=== PATIENT | male | born 1960 | race Caucasian/White ===

== ENCOUNTER 2016-05-20 17:41 | Observation (INO) | payer BC ==
--- NOTE | 2016-05-20 18:01 | EDPHY ---
HPI/HX/ROS/PE/MDM Narrative: CHIEF COMPLAINT: Right sided hand and face numbness. HISTORY OF PRESENT ILLNESS: The patient is a 56-year-old male with history of TIA and hypertension who presents to the ED with multiple neurological deficits. The patient started seeing black dots in his right eye around 9am. This lasted for about 30 minutes and then resolved. Around 11am the patient received a call from a client and felt very confused and is unable to recall the conversation. At 12pm he developed right sided numbness in his hand and face. He also developed a headache at that time, which he took 2 extra strength Tylenol. He states his symptoms have resolved. The patient is on Coumadin for a family blood clotting disorder that is unknown. He states he has not been taking the Coumadin as regularly lately. Of note, the patient recently went for a run and after felt as though he had a clot in his lateral right knee. The patient additionally notes that he recently had jaw surgery. He states he is having lip numbness that is more noticeable than usual. No fever, chills, chest pain, shortness of breath, palpitations, vomiting, diarrhea, urinary complaints, lightheadedness. According to the patient's , the first time the patient experienced a TIA was in 1999. He had left sided facial numbness and droop. Symptoms resolved on their own. He was discharged and then his symptoms worsened. Patient became more weak and collapsed. He had CT imaging done, and family believes clots were visualized. REVIEW OF SYSTEMS: Aside from elements discussed in the HPI, a comprehensive 10-point review of systems was reviewed and is negative. PAST MEDICAL HISTORY: TIA, Blood clotting disorder, Hypertension SOCIAL HISTORY: . The patient's father and son both have the same blood clotting disease. VITAL SIGNS: Reviewed by me GENERAL: Well-developed, appears uncomfortable, holding his head. HEENT: Atraumatic. Eyes: Nonsustained nystagmus when look to the left. Mouth : moist mucous membranes. No erythema or lesions. Neck: supple with no adenopathy. LUNGS: Clear to auscultation bilaterally, no wheezes, rhonchi or rales. CARDIAC: Regular rate and rhythm, no rubs, murmurs or gallops. ABDOMEN: Soft, nontender, nondistended, bowel sounds normal. BACK: No CVA tenderness. EXTREMITIES: Significant varicosity of right lower extremity, Right calf is swollen, Swollen area lateral to right knee that is nontender. NEURO: Alert and oriented x3, cranial nerves are intact throughout, normal motor, normal sensation. SKIN: Warm and dry, no rash. PSYCHIATRIC: Normal mentation, no agitation. Portions of this note were transcribed by a medical claims processor. I personally performed a history, physical exam, medical decision making, and confirmed accuracy of information the transcribed note. ED Course: The patient is a 56-year-old male with history of blood clotting disorder and TIA who presents with multiple neuro-deficits. The patient developed spotted vision around 9am that lasted for 30 minutes. At 11am he became confused. Around 12pm the patient developed right sided numbness in his face and hand. He also complains of headache. The patient has been evaluated for TIA in the past and states his symptoms today felt similar. He is currently asymptomatic. On exam, the patient has right right calf swelling and varicose veins. He has a swollen area to right lateral knee that is nontender. Plan for CT head, and CTA head and neck to look for clots. The 12 lead EKG was interpreted by myself. See hard copy and/or "tracemaster" electronic copy for interpretation: Sinus rhythm. CT head and CTA head and neck was obtained. I viewed the images myself on the PACS system. No clots. See the full radiology report in the imaging section. INR is not therapeutic. Plan to admit the patient. Patient is hypertensive at 160/102. He will be admitted [facility] by Dr. Irvin. She would like me to consult neurology. Her plan is to bridge the patient on Lovenox, obtain echocardiogram, as well as an MRI. 8:00 p.m.: I consulted Dr. Aguilera, Neurology, he will followup with the patient. MDM: Differential diagnoses the patient's presenting complaints was considered including but not limited to intracranial injury, TIA, ischemic cerebrovascular accident, hemorrhagic cerebrovascular accident, hypoglycemia, complex migraine , metastases, tumor, seizure, or electrolyte abnormality. - Data Points Imaging Results: Imaging Impressions Head CT 05/20/16 18:10 Impression: 1. No acute intracranial hemorrhage or evidence of ischemia. 2. Moderate diffuse nonspecific periventricular and subcortical white matter disease. Findings discussed with Emergency Department physician, Clau Vazquez MD, on at 1850 hours. Head CTA 05/20/16 18:10 Impression: Normal intracranial arterial circulation. No evidence of embolic disease or aneurysm. Findings discussed with Emergency Department physician, Clau Vazquez M.D., on May 20, 2016 at 1900 hours. Neck CTA 05/20/16 18:10 Impression: 1. Minimal bilateral carotid bulb plaque results in less than 10% stenosis. 2. Widely patent bilateral vertebral carotid arterial systems. No occlusion or dissection. Measurement of carotid stenosis is based on the residual internal carotid diameter with [place] Symptomatic Carotid Endarterectomy Trial (NASCET) based stenosis levels. Findings discussed with Emergency Department physician, Clau Vazquez MD, on at 1900 hours. Laboratory Results: Laboratory Results 05/20/16 18:00 05/20/16 18:00 05/20/16 05/20/16 05/20/16 18:00 18:00 18:00 WBC 9.91 10^3/uL H 10^3/uL (3.80-9.50) RBC 5.84 10^6/uL 10^6/uL (4.40-6.38) Hgb 17.5 g/dL g/dL (13.7-17.5) Hct 51.8 % H % (40.0-51.0) MCV 88.7 fL fL (81.5-99.8) MCH 30.0 pg pg (27.9-34.1) MCHC 33.8 g/dL g/dL (32.4-36.7) RDW 13.5 % % (11.5-15.2) Plt Count 190 10^3/uL 10^3/uL (150-400) MPV 9.9 fL fL (8.7-11.7) Neut % (Auto) 71.0 % % (39.3-74.2) Lymph % (Auto) 16.3 % % (15.0-45.0) [place] % (Auto) 9.7 % % (4.5-13.0) Eos % (Auto) 2.0 % % (0.6-7.6) Baso % (Auto) 0.6 % % (0.3-1.7) Nucleat RBC Rel Count 0.0 % % (0.0-0.2) Absolute Neuts (auto) 7.03 10^3/uL H 10^3/uL (1.70-6.50) Absolute Lymphs (auto) 1.62 10^3/uL 10^3/uL (1.00-3.00) Absolute Monos (auto) 0.96 10^3/uL H 10^3/uL (0.30-0.80) Absolute Eos (auto) 0.20 10^3/uL 10^3/uL (0.03-0.40) Absolute Basos (auto) 0.06 10^3/uL 10^3/uL (0.02-0.10) Absolute Nucleated RBC 0.00 10^3/uL 10^3/uL (0-0.01) Immature Gran % 0.4 % % (0.0-1.1) Immature Gran # 0.04 10^3/uL 10^3/uL (0.00-0.10) PT 14.7 SEC SEC (12.0-15.0) INR 1.15 (0.83-1.16) Sodium 134 mEq/L mEq/L (134-144) Potassium 4.0 mEq/L mEq/L (3.5-5.2) Chloride 102 mEq/L mEq/L (97-110) Carbon Dioxide 22 mEq/l mEq/l (22-31) Anion Gap 10 mEq/L mEq/L (8-16) BUN 13 mg/dL mg/dL (7-23) Creatinine 0.9 mg/dL mg/dL (0.7-1.3) Estimated GFR > 60 Glucose 82 mg/dL mg/dL (70-100) Calcium 9.3 mg/dL mg/dL (8.5-10.4) Troponin I < 0.012 ng/mL ng/mL (0-0.034) Medications Given: Discontinued Medications Hydromorphone HCl (Dilaudid) 1 mg IVP EDNOW ONE Stop: 05/20/16 18:13 Last Admin: 05/20/16 18:49 Dose: 1 mg Sodium Chloride (Ns) 1,000 mls @ 500 mls/hr IV EDNOW ONE Stop: 05/20/16 20:09 Last Admin: 05/20/16 18:45 Dose: 1,000 mls Sodium Chloride (Ns) 1,000 mls @ 3,000 mls/hr IV ONCE ONE Stop: 05/20/16 19:49 Last Admin: 05/20/16 20:00 Dose: 1,000 mls General Initial Vital Signs: Initial Vital Signs Temperature (C) 36.7 C 05/20/16 17:47 Heart Rate 76 05/20/16 17:47 Respiratory Rate 16 05/20/16 17:47 Blood Pressure 160/102 H 05/20/16 17:47 O2 Sat (%) 95 05/20/16 17:47 O2 Delivery Mode Room Air Allergies/Adverse Reactions: Penicillins Allergy (Intermediate, Verified 05/20/16 17:46) Rash Sulfa (Sulfonamide Antibiotics) Allergy (Intermediate, Verified 05/20/16 17:46) Other-Enter Comments Home Medications: Medication Instructions Recorded Warfarin Sodium [Coumadin 4MG (*)] 12 mg PO Q2D 05/20/16 Warfarin Sodium [Coumadin 4MG (*)] 13 mg PO Q2D 05/20/16 Departure - Departure Disposition: [facility] Inpatient Acute Clinical Impression: Focal neurological deficit, Subtherapeutic international normalized ratio (INR) TIA (transient ischemic attack) Qualifiers: Transient cerebral ischemia type: unspecified Qualified Code(s): G45.9 - Transient cerebral ischemic attack, unspecified Headache Qualifiers: Headache type: unspecified Headache chronicity pattern: acute headache Intractability: not intractable Qualified Code(s): R51 - Headache Hypertension Qualifiers: Hypertension type: essential hypertension Qualified Code(s): I10 - Essential ( primary) hypertension Condition: Fair Report Scribed for: Clau Vazquez Report Scribed by: Katie Keenan Date of Report: 05/20/16 Time of Report: 18:19
[2016-05-20] MEDS ORDERED: NS 1,000 ML IV ONE ×2 (18:10→19:30)
--- NOTE | 2016-05-20 18:10 | CPEKG ---
Heart Rate: 72 RR Interval: 833 P-R Interval: 164 QRSD Interval: 98 QT Interval: 356 QTC Interval: 390 P [place]: 60 QRS [place]: -19 T Wave [place]: 27 EKG Severity - OTHERWISE NORMAL ECG - EKG Impression: SINUS RHYTHM EKG Impression: BORDERLINE LEFT AXIS DEVIATION Electronically Signed By: Charli Flores 20-May-2016 21:57:35
[2016-05-20] MEDS ORDERED: HYDROmorphONE/DILAUDID 1 MG/ML SYR IVP ONE (18:12)
[2016-05-20 18:23] LABS: % IMMATURE GRANULYOCYTES 0.4 % (0.0-1.1); ABSOLUTE IMMATURE GRANULOCYTES 0.04 10^3/uL (0.00-0.10); ADD DIFF? NO; ADD MORPH? NO; ADD SCAN? NO; ATYPICAL LYMPHOCYTE FLAG 0 (0-99); FRAGMENT RBC FLAG 0 (0-99); HEMATOCRIT 51.8 % (40.0-51.0); HEMOGLOBIN 17.5 g/dL (13.7-17.5); LEFT SHIFT FLG 0 (0-99); LIPEMIA HEMOLYSIS FLAG 90 (0-99); MEAN CELL HEMOGLOBIN CONCENTR. 33.8 g/dL (32.4-36.7); MEAN CELL VOLUME 88.7 fL (81.5-99.8); MEAN PLATELET VOLUME 9.9 fL (8.7-11.7); PLATELET CLUMPS FLAG 0 (0-99); PLATELET COUNT 190 10^3/uL (150-400); RED BLOOD CELL COUNT 5.84 10^6/uL (4.40-6.38); RED CELL DISTRIBUTION WIDTH 13.5 % (11.5-15.2)
[2016-05-20 18:26] LABS: ANION GAP 10 mEq/L (8-16); CALCIUM 9.3 mg/dL (8.5-10.4); CARBON DIOXIDE 22 mEq/l (22-31); CHLORIDE 102 mEq/L (97-110); CREATININE 0.9 mg/dL (0.7-1.3); GLOMERULAR FILTRATION RATE > 60; GLUCOSE 82 mg/dL (70-100); SODIUM 134 mEq/L (134-144)
[2016-05-20 18:29] LABS: INR 1.15 (0.83-1.16); PROTIME(PATIENT) 14.7 SEC (12.0-15.0)
[2016-05-20] MEDS ORDERED: IOPAMIDOL (ISOVUE 370) 100 ML BTL IV ONE (18:29)
[2016-05-20 18:38] LABS: TROPONIN I < 0.012 ng/mL (0-0.034)
[2016-05-20] MEDS ORDERED: WARFARIN SODIUM 5 MG TAB PO SCH (19:30)
[2016-05-20] MEDS ORDERED: ONDANSETRON 4 MG/2 ML VIAL IVP PRN (19:30)
[2016-05-20] MEDS ORDERED: ACETAMINOPHEN 325 MG TAB PO PRN (19:30)
[2016-05-20] MEDS ORDERED: ONDANSETRON DISINTEGRATING 4 MG TAB PO PRN (19:30)
[2016-05-20] MEDS ORDERED: OXYCODONE/APAP 5/325 TAB PO PRN (20:30)
[2016-05-20] MEDS: ENOXAPARIN 100 MG/ML SYR SC SCH (20:56)
--- NOTE | 2016-05-20 21:07 | GHP ---
[f rep st] HISTORY AND PHYSICAL DATE OF ADMISSION: 05/20/2016 CHIEF COMPLAINT: Confusion and alternating areas of numbness and weakness. HISTORY OF PRESENT ILLNESS: A 56-year-old male with a familial clotting disorder, chronically on an ticoagulation with a history of TIA in the past, who presents with sudden onset of right hand numbne ss and tingling that alternated with right facial numbness and tingling, and some confusion and word -finding difficulty, all by time but within hours of each other in the same 24-hour time p eriod. Patient reports having had similar episode many years ago which led ultimately to the diagno sis of his familial clotting disorder. Since that time he has been on chronic anticoagulation and h as been free of symptoms. Today at approximately 9 a.m., the patient began with experiencing black dots in his vision which lasted for approximately 30-40 minutes and then resolved, followed then by fluctuating areas of numbness and tingling as outlined above. The patient has not been perfectly me dically compliant with his warfarin therapy recently. He denies any palpitations, any chest pain, an y nausea, vomiting, any abdominal discomfort, changes in his bowel habits, dysuria, hematuria, lower extremity edema. He did go for a run recently which historically has caused him intermittent probl ems with clotting and experienced some worsening of varicose veins in his lower extremity and some d iscomfort; otherwise, no known trauma, rashes or sick contacts. PAST MEDICAL HISTORY: 1. Familial clotting disorder without specific name [facility]. 2. History of TIA in the past. 3. Hypertension. FAMILY HISTORY: Positive for father and his son all with the same familiar clotting disorder on chr onic anticoagulation. SOCIAL HISTORY: Negative for tobacco. Patient drinks rare alcohol. No illicit drugs or marijuana. ADVANCED DIRECTIVES: Patient is full cor, full tube. His would be his medical decision maker. REVIEW OF SYSTEMS: A 10-point review of systems is negative with the exception of that reported in the HPI. PHYSICAL EXAMINATION: VITAL SIGNS: Blood pressure is 160/102, heart rate 76, respiratory rate 16, 95% on room air, temperature 36.7. GENERAL: This is a healthy-appearing middle-aged male in no acu te distress. HEENT: Notable for moist mucous membranes. Eyes: Negative for any icterus. CARDIAC: Patient is regular rate and rhythm. PULMONARY: Clear to auscultation bilaterally. GASTROINTESTIN AL: Positive bowel sounds. ABDOMEN: Soft, nontender in all 4 quadrants. MUSCULOSKELETAL: Diameter of the patient's right calf is larger than the left but no notable edema is appreciated. There are pronounced varicosities along the lateral margin of the right knee and calf. NEUROLOGIC: Patient's cranial nerves 2-12 are intact. Strength is intact throughout. Sensation is intact throughout. DATA: White count 9.9, hematocrit 51.8 which is above previous baseline, platelets of 190. INR is 1 .15. Troponin is less than 0.12. Creatinine 0.9. Noncontrast CT of the head, which I personally re viewed and interpreted, shows no acute bleeds or evidence of ischemia. Radiology does comment on dif fuse white matter disease. A CTA of the head and neck, which I personally reviewed and interpreted shows no occlusions or dissections. Radiology comments on bilateral carotid bulb plaque resulting in 10% stenosis. EKG, which I personally reviewed and interpreted, shows sinus rhythm, leftward axis d eviation, normal intervals, with no acute ST-T changes. ASSESSMENT AND PLAN: This is a 56-year-old male presenting with stuttering neurologic deficits. 1. Suspected transient ischemic attack. Patient is not therapeutic on his chronic anticoagulation. It is certainly possible that he is having recurrence of symptoms from an embolic source. Will re initiate his Lovenox anticoagulation, as well as some warfarin this evening. I have ordered a brain MRI, a transthoracic echocardiogram to look for an embolic source and a Neurology consult in the mo rning. We did discuss at length the importance of his chronic anticoagulation. He is not interested in a novel anticoagulant, is most comfortable with Coumadin. Will recheck an INR in the morning. 2. Hypertension. Will continue his home medications once reconciled. 3. Headache. Will treat the patient with pain medications as needed. 4. Right leg pain following a run. The patient does have size difference between the 2 calves. Wi ll order ultrasound of the lower extremity to evaluate for deep venous thrombosis. Prophylaxis with full-dose anticoagulation. 5. Diet: Cardiac. DISPOSITION: I expect in less than 2 midnights if the patient's neurologic imaging is normal and hi s neurologic evaluation stable. I have discussed the case with the emergency room physician. Delores reddy will be triaged to the medical-surgical floor for neurologic monitoring and care. /[id number]/MODL
[2016-05-21 05:31] LABS: CHOLESTEROL 196 mg/dL (140-220); CHOLESTEROL/HDL RATIO 4.56 RATIO (1.00-4.97); HIGH DENSITY LIPOPROTEIN 43 mg/dL (40-65); LDL/HDL RATIO 2.98 RATIO (1.00-3.64); LOW DENSITY LIPOPROTEIN 128 mg/dL (80-100); NON-HIGH DENSITY LIPOPROTEIN 153 mg/dL (90-129); TRIGLYCERIDE 127 mg/dL (40-150); VERY LOW DENSITY LIPOPROTEINS 25 mg/dL (8-25)
[2016-05-21 05:32] LABS: INR 1.28 (0.83-1.16)
[2016-05-21 07:25] VITALS: BP 138/88
[2016-05-21] MEDS: ENOXAPARIN 100 MG/ML SYR SC SCH (08:11)
[2016-05-21 09:43] LABS: HEMOGLOBIN A1C 5.5 % (4.0-6.0)
--- NOTE | 2016-05-21 11:40 | ECHO ---
[id number] + + [address] : : [place] [address] : : [phone] + + Adult Echocardiographic Report + --+ :Name: JENNI OLIVER WStudy Date: 05/21/2016 09:35 AM BP: 133/88 mmH g : : Hospital Admission Number: [id number] : :: 1960 Gender: Male Height: 70 in : :Age: 56 yrs Race: WH Weight: 200 lb : :Reason For Study: source of emboli : : BSA: 2.1 meter s2: :History: cva/tia : + --+ MMode/2D Measurements \T\ Calculations IVSd: 0.86 cm RVDd: 3.3 cm FS: 31.9 % Ao root diam: LVPWd: 0.94 cm LVIDd: 4.2 cm EDV(Teich): 2.9 cm LVIDs: 2.8 cm 76.5 ml ESV(Teich): 30.3 ml EF(Teich): 60.4 % LVLd ap4: 9.0 cm SV(MOD-sp4): EDV(MOD-sp4): 75.0 ml 134.0 ml LVLs ap4: 7.8 cm ESV(MOD-sp4): 59.0 ml EF(MOD-sp4): 56.0 % Normal Measurement Values: + + :LVIDd (3.5-5.7cm) IVSd (0.6-1.1cm) LVPWd (0.6-1.1cm) Aortic Root (2.0-3.7cm)Left Atrium (1.5-4.0cm): :LV Vol(d) (76-115ml) LV Vol(s) (29-48ml) Ejec Fraction (50-65%)PV Scott (0.6- 1.2m/s) TV Scott (0.4-1.0m/s) : :MV E Scott (0.8-1.0m/s)MV A Scott (0.3-1.0m/s)LVOT Scott (0.7-1.2m/s) Asc Ao Scott ( 0.9-1.8m/s) : + + Doppler Measurements \T\ Calculations MV E max scott: Ao V2 max: LV V1 max: PA V2 max: 73.5 cm/sec 133.8 cm/sec 85.2 cm/sec 136.8 cm/sec MV A max scott: Ao max P.2 mmHgLV V1 max PG: PA max P.5 mmHg 91.8 cm/sec 2.9 mmHg MV E/A: 0.80 MV dec time: 0.19 sec Left Ventricle The left ventricle is normal in size and function. There is normal left ventricular wall thickness. Ejection Fraction = 60%. No regional wall motion abnormalities noted. Right Ventricle The right ventricle is normal in size and function. Atria The left atrial size is normal. Right atrial size is normal. Mitral Valve The mitral valve leaflets are mildly thickened. There is no mitral valve stenosis. There is trace mitral regurgitation. Tricuspid Valve The tricuspid valve is normal in structure and function. There is no tricuspid stenosis. There is trace tricuspid regurgitation. Aortic Valve The aortic valve is normal in structure and function. There is no aortic stenosis. There is no aortic insufficiency. Pulmonic Valve The pulmonic valve is not well visualized. There is no pulmonic valvular regurgitation. Great Vessels The aortic root is normal size. Pericardium/Pleural There is no pericardial effusion. Conclusion A two-dimensional transthoracic echocardiogram with M-mode and Doppler was performed. There is no obvious source of embolus identified. If one is highly clinically suspected, then transesophageal echocardiography should be considered. 1. The left ventricle is normal in size and function. The Ejection Fraction = 60%. 2. The mitral valve leaflets are mildly thickened. There is trace mitral regurgitation. 3. The aortic valve is normal in structure and function. 4. The pulmonary artery pressure could not be adequately estimated. 5. No source of emboli detected. Consider JARED if clinically indicated. 6. No old study for comparison. Final Reading Physician: Joe Lerner MD electronically signed on 05/21/2016 11:39 AM Ordering Physician: Carisa Irvin Performed By: Jannie Hdz
[2016-05-21 12:52] VITALS: PULSE 66; RESP 14; TEMP 98.7; O2SAT 93
[2016-05-21] MEDS ORDERED: WARFARIN SODIUM 3 MG TAB PO SCH (16:00)
[2016-05-21] MEDS ORDERED: WARFARIN SODIUM 4 MG TAB PO SCH (16:00)
[2016-05-21] MEDS ORDERED: WARFARIN SODIUM 5 MG TAB PO SCH (16:00)
--- NOTE | 2016-05-21 20:40 | GDS ---
[f rep st] DISCHARGE SUMMARY DISCHARGE DIAGNOSES: 1. Suspected transient ischemic attack in the setting of known familial clotting disorder, presenti ng with subtherapeutic INR. 2. History of hypertension. 3. Resolved headache. ADVANCED QUALITY ENGINEER: Leoncio Aguilera DO, neurology. HOSPITAL COURSE AND STAY BY PROBLEM: Suspected TIA: The patient presented to the hospital with con fusion, and alternating areas of numbness and weakness in his right face and hand. The patient admi ts to not being very compliant with his warfarin due to his work schedule. On presentation, his INR was found to be 1.15. An MRI of his brain was done on presentation that was negative for acute isc hemia or intracranial hemorrhage. On hospital day #1, the patient's focal neurologic deficits have resolved. He was started on therap eutic Lovenox and was continued on his usual dose of warfarin. Prior to discharge, he was seen by Babak Aguilera from neurology who thought it was reasonable for him to discharge home on Lovenox. It was r ecommended that he take a statin which he refused. PHYSICAL EXAMINATION: VITAL SIGNS: On day of discharge, blood pressure 138/88, pulse of 66, respir atory rate 14, O2 saturation 93% on room air. Temperature afebrile. GENERAL: No acute distress. H EART: S1, S2. LUNGS: Clear. ABDOMEN: Soft. EXTREMITIES: No edema. NEUROLOGIC: No focal motor or sensory deficits. There is no pronator drift. Face is symmetric. DIAGNOSTICS ON THIS HOSPITAL STAY: Brain MRI done 05/20/2016 was negative. A lower extremity Doppl er was done to rule out DVT which was also negative. CTA of the head and neck was done, see report for details. DISCHARGE MEDICATIONS: Please refer to discharge medication reconciliation in [facility] for details. Below is a preliminary list. New medications on hospital discharge: Lovenox 90 mg subcu twice daily to be injected until his INR is greater than 2. All other home medications were continued at his usual home dosages. Once again, a statin was recommended but was refused by the patient. DISCHARGE INSTRUCTIONS: The patient was discharged from the hospital where he should follow up with his neurologist, as well as with his primary care provider next week. He should have his INR check ed on Tuesday or Tuesday and should stop Lovenox once his INR is greater than 2. The patient was edu cated on the risks of not being anticoagulated with his known clotting disorder. /[id number]/MODL
--- NOTE | 2016-05-21 23:21 | GCON ---
[f rep st] CONSULTATION INPATIENT CONSULTATION NOTE. DATE OF CONSULTATION: 05/21/2016 CHIEF COMPLAINT: Possible TIA. HISTORY OF PRESENT ILLNESS: Dr. Carisa Irvin of the hospitalist service consulted Neurology for ev aluation of patient's neurologic problems. Results of evaluation were placed in the EMR for review. 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 The patient does report he had a TIA in the past as well. He st ates he has recently not been very compliant with his Coumadin. The last 24 hours he had intermitte nt episodes of right facial numbness and tingling, intermittent confusion, intermittent word-finding problems, and right hand altered sensation. Symptoms were all unrelated and came and went in the l ast 24 hour period. However, these problems appear that the patient may be having a TIA or stroke. He presented to the emergency room. His INR was low and subtherapeutic. He was admitted to the [facility] and symptoms had all resolved. Brain MRI showed moderate chronic microvascular disease but n o acute changes or stroke. CT angiogram of the head and neck was unremarkable. Transthoracic echoc ardiogram shows no cardiac thrombus. The patient currently feels normal at this time. He has no ne urologic problems. NIH stroke scale is 0. PAST MEDICAL HISTORY: 1. Familial clotting disorder without a specific name, followed closely at [facility] and on Coumadin for this. 2. History of TIA. 3. Hypertension. FAMILY HISTORY: Positive for father and son with the same familial clotting disorder on chronic ant icoagulation. SOCIAL HISTORY: Negative for tobacco. REVIEW OF SYSTEMS: A 10-point review of systems is negative except for what is placed in the HPI. PHYSICAL EXAM: VITAL SIGNS: Blood pressure 138/88, heart rate 66, respirations 14, saturating 93% on room air. Temperature 37.1 degrees Celsius. GENERAL: No acute distress. EYES: Funduscopic ex am could not visualize optic discs. LUNGS: Clear to auscultation bilaterally. No rhonchi or rales . HEART: Regular rate and rhythm. No murmurs. No carotid bruits auscultated. NEUROLOGIC: Menta l status alert and oriented to person, place, and date. Memory, attention, language and fund of [facility] all appear intact. Cranial nerves: No facial weakness except for asymmetric smile from prio r jaw surgery. Pupils equal, round, react to light. Visual ward full to confrontation. Extraocu lar muscles intact. Bilateral face intact sensation and motor movement. Hearing intact to conversa tion. Uvula raises symmetrically. Tongue protrudes midline. Traps 5/5 strength. Motor exam: Nor mal tone and strength in all 4 extremities. Sensory exam: All 4 extremities intact to light touch. No sensory neglect. Reflexes: Bilateral biceps, brachioradialis, patella 2/4. Coordination: Bi lateral [id number], [id number], rapid alternating movements are normal. Gait deferred. NIH s troke scale 1 due to prior facial surgery. LABS: May 20, 2016, CBC with white blood cell count 9.91, hematocrit 51.8. INR 1.15. Chemistry u nremarkable. May 21, 2016, HbA1c 5.5, LDL 28. RADIOLOGY: May 20, 2016, brain MRI without contrast showed moderate chronic microvascular disease but no acute changes. I personally visualized this study. May 20, 2016, CT angiogram head and nec k shows no significant vascular problems. May 20, 2016, a transthoracic echocardiogram shows no ca rdiac thrombus. ASSESSMENT: 1. Familial clotting disorder requiring anticoagulation. 2. History of transient ischemic attack. 3. 24-hour episode of intermittent tingling of the right face, right hand, confusion and word findi ng problems. This certainly could be an atypical transient ischemic attack related to subtherapeuti c Coumadin given his clotting disorder, but given the MRI showed no strokes or ischemia, symptoms anderson ve all resolved, I think it would be very unusual to get transient ischemic attack in multiple areas without any infarction. However, the patient needs to be therapeutic on his Coumadin so it makes s ense to bridge him with Lovenox and have him continue outpatient Coumadin to prevent further clottin g problems. He also may have an atypical migraine. The patient has been given my phone number to c all if symptoms recur. He will plan on following up with me in 4-6 weeks in the outpatient setting. RECOMMENDATIONS: 1. Given prior history of TIA, the patient should work closely with his primary care per provider t o ensure LDL less than 70, currently 128. The patient is refusing a statin at this time. Blood pre ssure less than 140/90, HbA1c less than 7.0, currently at 5.5. 2. Agree with bridging with Lovenox until fully anticoagulated on oral Coumadin. 3. Follow up in the outpatient Neurology setting in 4-6 weeks. The patient was given my phone numb er to call sooner if needed. /[id number]/MODL
[2016-05-22] MEDS ORDERED: WARFARIN SODIUM 4 MG TAB PO SCH (16:00)
== END 2016-05-21 15:22 | disposition home or self-care (01) ==
LOC: F3N 20:30
PROVIDERS: ADMIT Hospitalist; ATTEND Family Medicine
DX: R20.2 Paresthesia of skin (principal); R41.0 Disorientation, unspecified; R51 Headache; D68.9 Coagulation defect, unspecified; I10 Essential (primary) hypertension; M79.661 Pain in right lower leg; Z86.73 Personal history of transient ischemic attack (TIA), and cerebral infarction without residual deficits; Z88.0 Allergy status to penicillin; Z88.2 Allergy status to sulfonamides; Z91.14 Patient's other noncompliance with medication regimen
CPT/HCPCS: 70450; 70496; 70498; 70551; 92523; 93005; 93306; 93971; 97161; G0378; 96374; J1170; J1650; Q9967